=== PATIENT | male | born 2005 | race Hispanic/Latino ===

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

== ENCOUNTER 2024-04-10 20:08 | Emergency (ER) | payer MEDICAID ==
[~2024-04-10] VITALS: Ht 170.2 cm; Wt 98.6 kg
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
[2024-04-10 21:26] LABS: BASOPHILS # (AUTO) 0.08 K/uL (0.00-0.20); BASOPHILS % (AUTO) 0.5 % (0.0-5.0); EOSINOPHILS # (AUTO) 0.46 K/uL (0.00-0.70); EOSINOPHILS % (AUTO) 3.1 % (0.0-8.0); HEMATOCRIT 46.8 % (42-54); LYMPHOCYTES # (AUTO) 1.5 K/uL (1.0-4.8); LYMPHOCYTES % (AUTO) 10.4 % (21.0-51.0); MEAN CORPUSCULAR HEMOGLOBIN 30.2 pg (27.0-33.0); MEAN CORPUSCULAR HGB CONC 34.2 g/dL (32.0-36.0); MEAN CORPUSCULAR VOLUME 88.3 fL (80-100); MONOCYTES % (AUTO) 7.1 % (3.0-13.0); NEUTROPHILS # (AUTO) 11.4 K/uL (1.8-7.7); NEUTROPHILS % (AUTO) 78.2 % (40.0-77.0); PLATELET COUNT (AUTO) 314 K/uL (130-400); RED CELL DISTRIBUTION WIDTH 12.6 % (11.0-15.5); WHITE BLOOD COUNT (AUTO) 14.7 K/uL (4.8-10.8)
[2024-04-10 21:31] VITALS: BP 126/73; PULSE 72; RESP 18; TEMP 98.6; O2SAT 98
== END 2024-04-10 21:36 | disposition home or self-care (01) ==
LOC: EDH 20:08
DX: T74.21XA Adult sexual abuse, confirmed, initial encounter (principal); R07.81 Pleurodynia; Z88.8 Allergy status to other drugs, medicaments and biological substances; Z91.041 Radiographic dye allergy status; Y08.89XA Assault by other specified means, initial encounter; Y93.89 Activity, other specified; Y92.89 Other specified places as the place of occurrence of the external cause; Y99.8 Other external cause status
CPT/HCPCS: 36415; 70450; 71250; 72125; 74150; 85025; 99284

== ENCOUNTER 2024-12-15 23:46 | Emergency (ER) | payer MEDICAID ==
[~2024-12-15] VITALS: Ht 170.2 cm; Wt 99.8 kg
--- NOTE | 2024-12-16 00:05 | NUR ---
WOUND CARE DONE ORDERED
[2024-12-16] MEDS: HYDROcodone/APAP 5/325 1 TAB TABLET PO ONE (00:32)
[2024-12-16] MEDS: OCTYL 2-CYANOACRYLATE 1 EACH TP ONE ×3 (01:28)
--- NOTE | 2024-12-16 01:29 | NUR ---
WOUND CARE DONE ORDERED
[2024-12-16] MEDS ORDERED: KETO10TA2 PO (01:40)
[2024-12-16] MEDS ORDERED: AMOX1TAB16 PO (01:40)
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
--- NOTE | 2024-12-16 01:52 | HMCIMG ---
EXAM: CR Left Hand, 3 views. CLINICAL HISTORY: Pain. COMPARISON: None provided. FINDINGS: No acute fracture or aggressive appearing osseous lesion. The joint spaces are within normal limits. Mild diffuse soft tissue swelling. IMPRESSION: No acute bony abnormality is evident. /[place]
[2024-12-16 01:53] VITALS: BP 125/78; PULSE 76; RESP 16; TEMP 97.6; O2SAT 99
== END 2024-12-16 01:55 | disposition home or self-care (01) ==
LOC: EDH 23:46
DX: S61.211A Laceration without foreign body of left index finger without damage to nail, initial encounter (principal); Z88.8 Allergy status to other drugs, medicaments and biological substances; W25.XXXA Contact with sharp glass, initial encounter; Y93.89 Activity, other specified; Y92.89 Other specified places as the place of occurrence of the external cause; Y99.8 Other external cause status
CPT/HCPCS: 99283; 12001; 73130; 96372; J1885

== ENCOUNTER 2024-12-20 13:29 | Emergency (ER) | payer SELFPAY ==
[~2024-12-20] VITALS: Ht 170.2 cm; Wt 97.5 kg
[~2024-12-20 13:29] MED LIST: AMOX1TAB16 PO; KETO10TA2 PO
[2024-12-20 14:40] VITALS: BP 130/80; PULSE 82; RESP 16; TEMP 98; O2SAT 98
--- NOTE | 2024-12-20 15:08 | ERN ---
General Chief Complaint: Wound Check Stated Complaint: WOUND CHECK, LT 2ND FINGER Time Seen by MD: 13:30 Source: patient History of Present Illness Initial Comments This is a 19-year-old male presents to the emergency department with concerns regarding a possible infection of a wound on his left index finger. The patient reports that the wound initially exhibited bleeding and purulent discharge, both of which have since resolved. He is currently asymptomatic with respect to drainage and bleeding, and his primary concern is to ensure the wound is not infected. Patient reports that he is already on Amoxicillin BID. Patient denies fever, chills, or systemic symptoms. He also denies local tenderness, erythema, or swelling around the wound. Severity: mild Associated Symptoms: denies symptoms Allergies: Coded Allergies: iodine (Unverified Allergy, Unknown, 04/10/24) Home Meds Active Scripts Ketorolac Tromethamine (Ketorolac Tromethamine) 10 Mg Tablet, 1 TAB PO TID for pain for 5 Days, #15 TAB 0 Refills Prov:QUE OCONNOR 12/16/24 Amoxicillin/Potassium Clav (Amox Tr-K Clv 875-125 mg Tab) 875 Mg-125 Mg Tablet, 1 EACH PO BID for 5 Days, #10 TAB 0 Refills Prov:QUE OCONNOR 12/16/24 Past Medical History Past Medical History: No Pertinent History Past Surgical History: None Constitutional: (-) chills, (-) diaphoresis, (-) fever, (-) malaise, (-) weakness, (-) other documentation EENTM: (-) eye pain, (-) blurred vision, (-) tearing, (-) double vision, (-) ear pain, (-) ear discharge, (-) nose pain, (-) nose congestion, (-) throat pain, (-) Throat swelling, (-) mouth pain, (-) tooth pain, (-) mouth swelling, (-) other documentation Respiratory: (-) cough, (-) orthopnea, (-) short of breath, (-) stridor, (-) wheezing, (-) other documentation Cardiovascular: (-) chest pain, (-) edema, (-) palpitations, (-) syncope, (-) dyspnea on exertion, (-) other documentation Gastrointestinal/Abdominal: (-) nausea, (-) vomiting, (-) diarrhea, (-) abdominal pain, (-) abdominal distention, (-) constipation, (-) rectal bleeding, (-) dark stool/melena, (-) other documentation Musculoskeletal: (-) Neck pain, (-) back pain, (-) Flank Pain, (-) joint pain, (-) joint swelling, (-) muscle pain, (-) muscle stiffness, (-) gout, (-) other documentation Skin: (+) other documentation (wound in healing stages on his left index f nathan) Neuro: (-) altered mental status, (-) headache, (-) syncope, (-) paralysis, (-) numbness, (-) seizure, (-) pre-existing deficit, (-) tremors, (-) weakness, (-) dizziness, (-) slurred speech, (-) vertigo, (-) other documentation Psych: (-) depression, (-) suicidal ideation, (-) anxiety, (-) emotional problems, (-) auditory hallucinations, (-) visual hallucinations Hematologic/Lymphatic: (-) anemia, (-) blood clots, (-) easy bleeding, (-) easy bruising, (-) swollen glands, (-) other documentation Physical Exam General Appearance: (+) no apparent distress Orientation: (+) alert, (+) oriented x 3 Head/Face Trauma: No Ear, Nose, Throat: (+) hearing grossly normal Neck: (+) normal inspection Respiratory: (+) chest non-tender, (+) lungs clear Heart: (+) regular Vascular: (+) no edema Gastrointestinal: (+) soft, (+) non-tender Extremities: (+) other (A well-demarcated 1 x 1 cm wound is present on the dorsal aspect of the patient's left index finger. The wound is currently in the healing phase, with no evidence of active bleeding, erythema, or tenderness on examination. There are no signs of local infection, such as induration, increased warmth, or purulent discharge, and no systemic symptoms are reported) MDM MDM: Differential diagnosis: superficial skin infection/early abscess. Rationale: Tests considered and ordered secondary to shared decision making include: labs, ECG and radiology Previous outside records reviewed: Old ER visits. Risk of complication and/or morbidity or mortality of patient management: None Medications-Per medication reconciliation Need for hospitalization: Patient does not meet criteria for hospitalization. Need for emergency major/minor surgery: No ED Course Vital Signs Date Time Temp Pulse Resp B/P (MAP) Pulse Ox O2 Delivery O2 Flow Rate FiO2 12/20/24 14:40 98.1 82 16 130/80 98 Room Air* 0 21 12/20/24 13:30 97.9 86 16 130/84 99 Room Air DX & DISP Disposition: Discharge Departure Impression: Primary Impression: Visit for wound check Condition: Stable Referrals: SELF,REFERRAL (PCP) JOY CHIN MD Dec 20, 2024 15:08 KEVON COON MD Dec 20, 2024 15:27
== END 2024-12-20 15:36 | disposition home or self-care (01) ==
LOC: EDH 13:29
DX: Z48.00 Encounter for change or removal of nonsurgical wound dressing (principal); Z88.8 Allergy status to other drugs, medicaments and biological substances; Z79.899 Other long term (current) drug therapy
CPT/HCPCS: 99282